=== PATIENT | male | born 1985 | race Caucasian/White ===

== ENCOUNTER 2017-01-05 23:50 | Emergency (ER) | payer SELFPAY ==
[~2017-01-05 23:50] MED LIST: ATV1 PO; BUSPAR15 M1 PO; CAMPRAL; CEFT2 PO; CELEXA20; CELEXA20 PO; L10; LEVSINTAB PO; PR25 PO; PREV15 PO; V5 PO
[2017-01-06 02:22] LABS: BASOPHILS 0.5 %; BASOPHILS ABSOLUTE 0.02 10/3/uL (0.0-0.16); EOSINOPHILS 1.7 %; EOSINOPHILS ABSOLUTE 0.07 10/3/uL (0.0-0.53); ER CBC TAT 0 Hrs 00 Mins; HEMATOCRIT 41.4 % (40.0-51.0); HEMOGLOBIN 14.4 g/dL (13.6-17.8); IMMATURE GRANULOCYTES 0.5 %; IMMATURE GRANULOCYTES ABSOLUTE 0.02 10/3/uL (0.0-0.11); LYMPHOCYTES 47.4 %; LYMPHOCYTES ABSOLUTE 2.01 10/3/uL (0.67-4.30); MEAN CORPUS HGB CONC 34.8 g/dL (32.0-36.0); MEAN CORPUSCULAR HEMOGLOB 29.1 pg (26.0-34.0); MEAN PLATELET VOLUME 10.4 fL (9.2-13.0); MONOCYTES 7.5 %; MONOCYTES ABSOLUTE 0.32 10/3/uL (0.21-1.20); NEUTROPHILS 42.4 %; PLATELET COUNT 148 10/3/uL (150-400); RBC DISTRIBUTION WIDTH 14.1 % (12.0-16.0); RED CELL COUNT 4.94 10/6/uL (4.7-6.1); WHITE BLOOD CELLS 4.2 10/3/uL (4.5-10.5)
[2017-01-06 02:25] LABS: MANUAL DIFF NO %; MEAN CORPUSCULAR VOLUME 83.8 fL (80-100)
[2017-01-06 02:38] LABS: A/G RATIO 0.9 (0.7-1.9); ALBUMIN 3.4 G/DL (3.5-5.0); ALCOHOL 158 MG/DL (0); BUN (BLOOD UREA NITROGEN) 10 MG/DL (6-23); CHLORIDE, SERUM 107 MMOL/L (96-112); CREATININE 0.97 MG/DL (0.70-1.30); GFR AFRICAN AMERICAN 118 ML/MIN (>=60); GFR NON AFRICAN AMERICAN 102 ML/MIN (>=60); GLUCOSE, SERUM 83 MG/DL (60-99); POTASSIUM, SERUM 3.8 MMOL/L (3.5-5.3); SGOT(AST) 30 U/L (5-40); SGPT(ALT) 24 U/L (5-65); SODIUM, SERUM 148 MMOL/L (135-148); TOTAL BILIRUBIN 0.5 MG/DL (0-1.2); TOTAL PROTEIN 7.4 G/DL (6.0-8.5)
[2017-01-06 02:41] LABS: ACETAMINOPHEN LEVEL (TYLENOL) < 2.0 MCG/ML (10.0-20.0); ALKALINE PHOSPHATASE 38 U/L (45-117); CO2 (CARBON DIOXIDE) 32 MMOL/L (24-34); SALICYLATE < 1.7 MG/DL (-)
== END 2017-01-06 05:54 | disposition home or self-care (01) ==
LOC: ER 23:50
PROVIDERS: Specialist
DX: F10.10 Alcohol abuse, uncomplicated (principal); F32.9 Major depressive disorder, single episode, unspecified; F41.9 Anxiety disorder, unspecified; Z88.4 Allergy status to anesthetic agent; Z91.038 Other insect allergy status; Z79.899 Other long term (current) drug therapy
CPT/HCPCS: 80053; 80307; 85025; 96365; 96366; 99285; A9270-GY; J3411